=== PATIENT | male | born 1980 | race Caucasian/White ===

== ENCOUNTER 2023-04-25 07:56 | Emergency (ER) | payer MEDICAID ==
[2023-04-25 08:06] VITALS: PULSE 108
[2023-04-25] MEDS ORDERED: Sodium Chloride 0.9% 1000 ML 1,000 ML IV STA (08:32)
[2023-04-25] MEDS ORDERED: Zofran 4 MG/2 ML VIAL IV ONE (08:35)
[2023-04-25] MEDS ORDERED: TORAdol 30 mg Injection IV ONE (08:35)
[2023-04-25] MEDS ORDERED: TORAdol 30 mg Injection ONE (08:46)
[2023-04-25] MEDS ORDERED: Zofran 4 MG/2 ML VIAL ONE (08:46)
[2023-04-25] MEDS ORDERED: Sodium Chloride 0.9% 1000 ML 1,000 ML ONE (08:46)
--- NOTE | 2023-04-25 08:46 | ERPHSYRPT ---
- History of Present Illness Time Seen by Provider: 04/25/23 08:41 Historian: patient Exam Limitations: no limitations Patient Subjective Stated Complaint: pt here for abd pain for 3 days now, states feels like cramping, some nausea Triage Nursing Assessment: pt alert, resp easy, skin w/d/p, abd soft, no edema noted, bm yesterday Physician History: Patient is a 43-year-old male presents to our ED for evaluation of abdominal cramping. Cramping started approximately 3 days ago. No trauma no fever. Patient has not had a bowel movement at this timeframe. Patient is experiencing nausea. Symptoms are intermittent. Symptoms are moderate in intensity. No specific worsening improving factors. Patient denies a history of the same. Patient has no other complaints. Patient denies past medical history. Patient voices no other complaints or concerns at this time. Portions of this note were created with voice recognition technology. There may be grammatical, spelling, punctuation or sound alike errors Timing/Duration: day(s) (3 days) Activities at Onset: none Quality: cramping Abdominal Pain Onset Location: generalized abdomen Pain Radiation: no radiation Severity of Pain-Max: moderate Severity of Pain-Current: mild Modifying Factors: Improves With: nothing Associated Symptoms: denies symptoms Previous symptoms: no prior history Allergies/Adverse Reactions: No Known Drug Allergies Allergy (Unverified 04/25/23 08:04) Home Medications: Buprenorphine HCl/Naloxone HCl [Suboxone 8 mg-2 mg Sl Film] 1 ea DAILY 04/25/23 [History] Hx Influenza Vaccination/Date Given: No Hx Pneumococcal Vaccination/Date Given: No Immunizations Up to Date: Yes Travel Risk - International Travel Have you traveled outside of the country in past 3 weeks: No - Coronavirus Screening Are you exhibiting any of the following symptoms?: No Close contact with a COVID-19 positive Pt in past 14-21 Days: No - Vaccine Status Have you recieved a Covid-19 vaccination: Yes [employer]: Moderna - Vaccination Dates Date of 2cond Vaccination (if applicable): 2020 - Review of Systems Constitutional: No Symptoms, No Fever, No Chills Eyes: No Symptoms Ears, Nose, & Throat: No Symptoms Respiratory: No Symptoms, No Cough, No Dyspnea Cardiac: No Symptoms, No Chest Pain, No Edema, No Syncope Abdominal/Gastrointestinal: No Symptoms, No Abdominal Pain, No Nausea, No Vomiting, No Diarrhea Genitourinary Symptoms: No Symptoms, No Dysuria Musculoskeletal: No Symptoms, No Back Pain, No Neck Pain Skin: No Symptoms, No Rash Neurological: No Symptoms, No Dizziness, No Focal Weakness, No Sensory Changes Psychological: No Symptoms Endocrine: No Symptoms Hematologic/Lymphatic: No Symptoms Immunological/Allergic: No Symptoms All Other Systems: Reviewed and Negative - Past Medical History Pertinent Past Medical History: No Neurological History: No Pertinent History ENT History: No Pertinent History Cardiac History: No Pertinent History Respiratory History: No Pertinent History Endocrine Medical History: No Pertinent History Musculoskeletal History: No Pertinent History GI Medical History: No Pertinent History Psycho-Social History: No Pertinent History Male Reproductive Disorders: No Pertinent History Other Medical History: unknown pt is unable to verbalize - Past Surgical History Past Surgical History: Yes Neuro Surgical History: No Pertinent History Cardiac: No Pertinent History Respiratory: No Pertinent History Gastrointestinal: No Pertinent History Genitourinary: No Pertinent History Musculoskeletal: No Pertinent History Male Surgical History: No Pertinent History Other Surgical History: wound debridment leg - Social History Smoking Status: Current every day smoker Exposure to second hand smoke: Yes Drug Use: marijuana Patient Lives Alone: No - Nursing Vital Signs Nursing Vital Signs: Initial Vital Signs Temperature 97.2 F 04/25/23 08:05 Pulse Rate 108 H 04/25/23 08:05 Respiratory Rate 18 04/25/23 08:05 Blood Pressure 156/110 04/25/23 08:05 O2 Sat by Pulse Oximetry 98 04/25/23 08:05 Pain Scale Pain Intensity 6 - Physical Exam General Appearance: no apparent distress, alert Eye Exam: PERRL/EOMI, eyes nml inspection Ears, Nose, Throat Exam: normal ENT inspection, pharynx normal, moist mucous membranes Neck Exam: normal inspection, non-tender, supple, full range of motion Respiratory Exam: normal breath sounds, lungs clear, airway intact, No respiratory distress Cardiovascular Exam: regular rate/rhythm, normal heart sounds, normal peripheral pulses Gastrointestinal/Abdomen Exam: soft, other (Hypoactive bowel sounds. No tenderness. Slightly distended. No guarding. No pulsatile masses), No tenderness, No mass Back Exam: normal inspection, normal range of motion, No CVA tenderness, No vertebral tenderness Extremity Exam: normal inspection, normal range of motion, pelvis stable Neurologic Exam: alert, oriented x 3, cooperative, normal mood/affect, nml cerebellar function, sensation nml, No motor deficits Skin Exam: normal color, warm, dry Lymphatic Exam: No adenopathy SpO2 Interpretation: normal SpO2: 98 O2 Delivery: Room Air - Course Nursing assessment & vital signs reviewed: Yes - CT Exams Abdomen/Pelvis CT Interpretation: Tele-radiologist Report (Hepatosplenomegaly otherwise negative.) Ordered Tests: Active Orders 24 hr Category Date Time Status IV Insertion STAT Care 04/25/23 08:32 Active ABDOMEN AND PELVIS W/0 CONTRAS [CT] Stat Exams 04/25/23 08:33 Completed CBC W DIFF Stat Lab 04/25/23 08:45 Completed CMP Stat Lab 04/25/23 08:45 Completed LIPASE Stat Lab 04/25/23 08:45 Completed TROPONIN Q4H Lab 04/25/23 08:45 Completed TROPONIN Q4H Lab 04/25/23 12:45 Ordered TROPONIN Q4H Lab 04/25/23 16:45 Ordered Medication Summary Discontinued Medications Generic Name Dose Route Start Last Admin Trade Name Freq PRN Reason Stop Dose Admin Sodium Chloride 1,000 mls @ 999 mls/hr 04/25/23 08:32 04/25/23 08:47 Sodium Chloride 0.9% 1000 Ml IV 04/25/23 09:32 999 mls/hr .Q1H1M STA Administration Sodium Chloride Confirm 04/25/23 08:46 Sodium Chloride 0.9% 1000 Ml Administered 04/25/23 08:47 Dose 1,000 mls @ ud .ROUTE .STK-MED ONE Ketorolac Tromethamine 30 mg 04/25/23 08:35 04/25/23 08:47 Ketorolac Tromethamine 30 Mg/Ml Inj IV 04/25/23 08:36 30 mg STAT ONE Administration Ketorolac Tromethamine Confirm 04/25/23 08:46 Ketorolac Tromethamine 30 Mg/Ml Inj Administered 04/25/23 08:47 Dose 30 mg .ROUTE .STK-MED ONE Ondansetron HCl 4 mg 04/25/23 08:35 04/25/23 08:48 Ondansetron Hcl 4 Mg/2 Ml Vial IV 04/25/23 08:36 4 mg STAT ONE Administration Ondansetron HCl Confirm 04/25/23 08:46 Ondansetron Hcl 4 Mg/2 Ml Vial Administered 04/25/23 08:47 Dose 4 mg .ROUTE .STK-MED ONE Lab/Rad Data: Laboratory Result Diagrams 04/25/23 08:45 04/25/23 08:45 Laboratory Results 04/25/23 04/25/23 04/25/23 Range/Units 08:45 08:45 08:45 WBC 6.8 (4.0-10.5) x10^3/uL RBC 5.29 (4.1-5.6) x10^6/uL Hgb 16.4 (12.5-18.0) g/dL Hct 46.7 (42-50) % MCV 88.3 (78-100) fL MCH 31.0 (26-32) pg MCHC 35.1 (32-36) g/dL RDW 12.3 (11.5-14.0) % Plt Count 181 (150-450) x10^3/uL MPV 10.4 (7.5-11.0) fL Gran % 70.1 H (36.0-66.0) % Immature Gran % (Auto) 0.4 (0.00-0.4) % Nucleat RBC Rel Count 0.0 (0.00-0.1) % Eos # (Auto) 0.05 (0-0.5) x10^3/uL Immature Gran # (Auto) 0.03 (0.00-0.03) x10^3u/L Absolute Lymphs (auto) 1.36 (1.0-4.6) x10^3/uL Absolute Monos (auto) 0.59 (0.0-1.3) x10^3/uL Absolute Nucleated RBC 0.00 (0.00-0.01) x10^3u/L Lymphocytes % 19.9 L (24.0-44.0) % Monocytes % 8.6 (0.0-12.0) % Eosinophils % 0.7 (0.00-5.0) % Basophils % 0.3 (0.0-0.4) % Absolute Granulocytes 4.79 (1.4-6.9) x10^3/uL Basophils # 0.02 (0-0.4) x10^3/uL Sodium 138 (137-145) mmol/L Potassium 3.8 (3.5-5.1) mmol/L Chloride 101 (98-107) mmol/L Carbon Dioxide 27 (22-30) mmol/L Anion Gap 13.1 (5-15) MEQ/L BUN 9 (9-20) mg/dL Creatinine 0.84 (0.66-1.25) mg/dL Estimated GFR > 60.0 ML/MIN Glucose 113 H (74-106) mg/dL Calcium 9.2 (8.4-10.2) mg/dL Total Bilirubin 1.20 (0.2-1.3) mg/dL AST 38 (17-59) U/L ALT 48 (0-50) U/L Alkaline Phosphatase 92 (38-126) U/L Troponin I < 0.012 (0.000-0.034) ng/mL Serum Total Protein 7.8 (6.3-8.2) g/dL Albumin 4.5 (3.5-5.0) g/dL Lipase 91 (23-300) U/L - Progress Progress: improved Progress Note: Please a 43-year-old male presents to our ED for evaluation of abdominal cramping x3 days. Patient also experiencing some nausea. Physical exam reveals abdomen to be slightly distended. No tenderness. Overlying soft tissue intact. No signs of trauma. Patient in no distress. Laboratory work-up includes CT abdomen pelvis which is negative for acute intra-abdominal pathology. Incidental hepatosplenomegaly observed. CBC nonremarkable. CMP non remarkable. Lipase negative. Troponin negative. Patient received a liter of normal saline. Patient received Toradol for pain and Zofran for nausea. Patient reassessed. Pain significantly improved. No indication for further work-up. Will discharge home. Patient requesting a work note. Work note was provided. A prescription for Bentyl and Zofran was provided. Patient agrees to follow-up with primary care doctor within 48 hours for reevaluation. Portions of this note were created with voice recognition technology. There may be grammatical, spelling, punctuation or sound alike errors Complexity of problem addressed is moderate acute complicated No critical care time. Complex of data reviewed and analyzed is moderate. Test ordered. Test reviewed. Clinical correlation completed between findings on CT scan laboratory work-up and physical examination. Risk of complication and or risk morbidity/mortality of patient management is moderate. Patient received a liter normal saline, Toradol IV as well as Zofran IV. A prescription for Zofran and Bentyl was forwarded to patient's pharmacy. We will discharge home. Vital stable. Time spent to discharge patient is appro ximately 15 minutes. Plan of care established for shared decision making. Patient voices no other complaints or concerns at this time. He states he will follow-up with his primary care doctor within 48 hours for evaluation. Work note provided per his request. Portions of this note were created with voice recognition technology. There may be grammatical, spelling, punctuation or sound alike errors 04/25/23 10:23 Counseled pt/family regarding: lab results, diagnosis, need for follow-up, rad results - Departure Departure Disposition: Home Clinical Impression: Abdominal pain, Hepatosplenomegaly Condition: Stable Critical Care Time: No Referrals: ALANA MCCANN [Primary Care Provider] - Follow up/PCP as directed Additional Instructions: Discharge/Care Plan VICKI DEVRIES was seen on 04/25/23 in the Emergency Room. The patient was counseled regarding Diagnosis,Lab results, Imaging studies, need for follow up and when to return to the Emergency Room. Prescriptions given: Discharge Note I have spoken with the patient and/or caregivers. I have explained the patient's condition, diagnosis and treatment plan based on the information available to me at this time. I have answered the patient's and/or caregiver's questions and addressed any concerns. The patient and/or caregivers have as good understanding of the patient's diagnosis, condition and treatment plan as can be expected at this point. The vital signs have been stable. The patient's condition is stable and appropriate for discharge from the emergency department. The patient will pursue further outpatient evaluation with the primary care physician or other designated or consulting physician as outlined in the discharge instructions. The patient and/or caregivers are agreeable to this plan of care and follow-up instructions have been explained in detail. The patient and/or caregivers have received these instruction. The patient/and or caregivers are aware that any significant change in condition or worsening of symptoms should prompt an immediate return to this or the closest emergency department or call 911. Forms: Work/School Release Form Prescriptions: Ondansetron ODT 4 MG [Zofran Odt 4 mg] 4 mg PO Q6H PRN PRN #10 tablet PRN Reason: Vomiting Dicyclomine HCl 20 mg [Bentyl 20 mg] 20 mg PO TID 5 Days #15 tablet
[2023-04-25 08:49] LABS: Absolute Neutrophil Ct (ANC) 4.79 x10^3/uL (1.4-6.9); BASOPHIL % 0.3 % (0.0-0.4); Basophil (Absolute #) 0.02 x10^3/uL (0-0.4); Eosinophil % 0.7 % (0.00-5.0); Eosinophil (Absolute #) 0.05 x10^3/uL (0-0.5); Hematocrit 46.7 % (42-50); Hemoglobin 16.4 g/dL (12.5-18.0); IMMATURE GRAN # 0.03 x10^3u/L (0.00-0.03); IMMATURE GRAN % 0.4 % (0.00-0.4); Lymphocyte (Absolute #) 1.36 x10^3/uL (1.0-4.6); Lymphocytes % 19.9 % (24.0-44.0); Mean Cell Volume 88.3 fL (78-100); Mean Corpuscular Hgb Concent. 35.1 g/dL (32-36); Mean Platelet Volume 10.4 fL (7.5-11.0); Monocyte (Absolute #) 0.59 x10^3/uL (0.0-1.3); Monocytes % 8.6 % (0.0-12.0); Neutrophil % 70.1 % (36.0-66.0); Platelet Count 181 x10^3/uL (150-450); Red Blood Count 5.29 x10^6/uL (4.1-5.6); Red Cell Distribution Width 12.3 % (11.5-14.0); White Blood Count 6.8 x10^3/uL (4.0-10.5)
[2023-04-25 09:07] LABS: ALBUMIN 4.5 g/dL (3.5-5.0); ALKALINE PHOSPHATASE 92 U/L (38-126); ANION GAP 13.1 MEQ/L (5-15); BLOOD UREA NITROGEN 9 mg/dL (9-20); CHLORIDE 101 mmol/L (98-107); Calcium 9.2 mg/dL (8.4-10.2); Carbon Dioxide 27 mmol/L (22-30); Creatinine 1 0.84 mg/dL (0.66-1.25); EST GLOMERULAR FILTRATION RATE > 60.0 ML/MIN; Glucose 113 mg/dL (74-106); LIPASE 91 U/L (23-300); Potassium 3.8 mmol/L (3.5-5.1); SGOT/AST 38 U/L (17-59); SGPT/ALT 48 U/L (0-50); SODIUM 138 mmol/L (137-145); Total Protein 7.8 g/dL (6.3-8.2)
--- NOTE | 2023-04-25 09:37 | XRAY ---
CLINICAL HISTORY:Mid abdominal cramping since 3 days with blood in stool. COMPARISON:None. TECHNIQUES:CT scan of the abdomen was performed without IV contrast. Bowel loops are not opacified by prior administration of oral contrast. FINDINGS: The liver is mildly enlarged in size and measures 17 cm. No focal parenchymal abnormality. The portal vein, intrahepatic biliary radicals and the bile ducts are normal. The spleen is also mildly enlarged in size, measuring 14 cm. Few calcificed granulomas are seen in spleen. Two small nodules are seen posterior to the spleen with similar density to spleen, suggestive of splenules. Pancreas normal in size. Adrenal glands are unremarkable. The kidneys are normal in size and shape. No calculi or hydronephrosis seen on either side. GB is unremarkable. Appendix is visualized and appears normal. The visualized small and large bowel loops are unremarkable. There is no evidence of significant enlargement of the mesenteric or retroperitoneal lymph nodes. Urinary bladder is partially distended. no hyperdense calculus is noted. Prostate is normal. Bones show no abnormality. No lytic or sclerotic bone lesions. IMPRESSION: 1. Mild hepatosplenomegaly. 2. No other gross abnormality. Bowel appears unremarkable with limitations of non-contrast examination. Electronically Signed by: Allan Talavera MD. (04/25/2023 08:32:24 DEPOSITION OPERATOR)
[2023-04-25 10:40] VITALS: BP 145/89; O2SAT 97
== END 2023-04-25 10:49 | disposition home or self-care (01) ==
LOC: ED 07:56
DX: R16.2 Hepatomegaly with splenomegaly, not elsewhere classified (principal); R10.9 Unspecified abdominal pain; R11.0 Nausea; Z79.891 Long term (current) use of opiate analgesic; Z72.0 Tobacco use
CPT/HCPCS: 36000; 36415; 74176; 80053; 83690; 84484; 85025; 96360; 96374; 96375; 99284; J1885; J2405

== ENCOUNTER 2024-01-10 20:55 | Emergency (ER) | payer MEDICAID, OTHER ==
[2024-01-10 21:13] VITALS: O2SAT 98
--- NOTE | 2024-01-10 21:13 | ERPHSYRPT ---
- History of Present Illness Time Seen by Provider: 01/10/24 21:05 Source: patient Physician History: 43-year-old male presents to our ED for evaluation of bleeding to the left index finger. Patient states he was making dinner. He was cutting potatoes with a knife and inadvertently lacerated his left index finger at its lateral aspect. Injury occurred approximately an hour and a half prior to arrival. Patient wrapped the injury and states that he cannot get it to stop bleeding. No other injuries reported. Pain is minimal. Patient voices no other complaints or concerns at this time. Portions of this note were created with voice recognition technology. There may be grammatical, spelling, punctuation or sound alike errors Timing/Duration: today Severity: mild Modifying Factors: Improves With: nothing Associated Symptoms: denies symptoms Allergies/Adverse Reactions: No Known Drug Allergies Allergy (Verified 01/10/24 20:59) Home Medications: Buprenorphine HCl/Naloxone HCl [Suboxone 8 mg-2 mg Sl Film] 1 ea DAILY 04/25/23 [History] Hx Influenza Vaccination/Date Given: No Hx Pneumococcal Vaccination/Date Given: No - Review of Systems Constitutional: No Symptoms Eyes: No Symptoms Ears, Nose, & Throat: No Symptoms Respiratory: No Symptoms Cardiac: No Symptoms Abdominal/Gastrointestinal: No Symptoms Genitourinary Symptoms: No Symptoms Musculoskeletal: No Symptoms Skin: No Symptoms Neurological: No Symptoms Psychological: No Symptoms Endocrine: No Symptoms Hematologic/Lymphatic: No Symptoms Immunological/Allergic: No Symptoms - Past Medical History Pertinent Past Medical History: No Neurological History: No Pertinent History ENT History: No Pertinent History Cardiac History: No Pertinent History Respiratory History: No Pertinent History Endocrine Medical History: No Pertinent History Musculoskeletal History: No Pertinent History GI Medical History: No Pertinent History Psycho-Social History: No Pertinent History Male Reproductive Disorders: No Pertinent History Other Medical History: unknown pt is unable to verbalize - Past Surgical History Past Surgical History: Yes Neuro Surgical History: No Pertinent History Cardiac: No Pertinent History Respiratory: No Pertinent History Gastrointestinal: No Pertinent History Genitourinary: No Pertinent History Musculoskeletal: No Pertinent History Male Surgical History: No Pertinent History Other Surgical History: wound debridment leg - Social History Smoking Status: Current every day smoker Exposure to second hand smoke: Yes Drug Use: marijuana Patient Lives Alone: No - Physical Exam General Appearance: no apparent distress, alert Eye Exam: PERRL/EOMI, eyes nml inspection Ears, Nose, Throat Exam: normal ENT inspection, moist mucous membranes Neck Exam: normal inspection, non-tender, supple, full range of motion Respiratory Exam: normal breath sounds, lungs clear, No respiratory distress Cardiovascular Exam: regular rate/rhythm, normal heart sounds, normal peripheral pulses Gastrointestinal/Abdomen Exam: soft, normal bowel sounds, No tenderness, No mass Back Exam: normal inspection, normal range of motion, No CVA tenderness, No vertebral tenderness Extremity Exam: normal inspection, normal range of motion, pelvis stable Neurologic Exam: alert, oriented x 3, cooperative, normal mood/affect, sensation nml, No motor deficits Skin Exam: normal color, warm, dry, No rash Lymphatic Exam: No adenopathy SpO2 Interpretation: normal SpO2: 98 O2 Delivery: Room Air - Course Nursing assessment & vital signs reviewed: Yes - Progress Progress: improved Progress Note: 43-year-old male presents to our ED with a superficial finger avulsion to his left index finger distal tip lateral aspect. No indication for suture repair. Patient just requires a sterile dressing for 48 hours and follow-up. No antibiotics needed. No other injuries reported. Patient voices no other complaints or concerns at this time. Portions of this note were created with voice recognition technology. There may be grammatical, spelling, punctuation or sound alike errors Complexity problem addressed is low acute uncomplicated No critical care time Complexity of data reviewed and analyzed is none. No specialized testing ordered. Diagnosis made based on history and physical exam. Risk of complication and or risk of morbidity/mortality patient management is low Vital stable. Time spent to discharge patient is approximately 10 minutes. Plan of care established for shared decision making. No social determinants of health present impede follow-up. Portions of this note were created with voice recognition technology. There may be grammatical, spelling, punctuation or sound alike errors 01/10/24 21:08 Counseled pt/family regarding: diagnosis, need for follow-up - Departure Departure Disposition: Home Clinical Impression: Avulsion of finger tip Condition: Stable Critical Care Time: No Referrals: IDALIA RENE DO [Primary Care Provider] - Follow up/PCP as directed Additional Instructions: Discharge/Care Plan VICKI DEVRIES was seen on 01/10/24 in the Emergency Room. The patient was counseled regarding Diagnosis,Lab results, Imaging studies, need for follow up and when to return to the Emergency Room. Prescriptions given: Discharge Note I have spoken with the patient and/or caregivers. I have explained the patient's condition, diagnosis and treatment plan based on the information available to me at this time. I have answered the patient's and/or caregiver's questions and addressed any concerns. The patient and/or caregivers have as good understanding of the patient's diagnosis, condition and treatment plan as can be expected at this point. The vital signs have been stable. The patient's condition is stable and appropriate for discharge from the emergency department. The patient will pursue further outpatient evaluation with the primary care physician or other designated or consulting physician as outlined in the discharge instructions. The patient and/or caregivers are agreeable to this plan of care and follow-up instructions have been explained in detail. The patient and/or caregivers have received these instruction. The patient/and or caregivers are aware that any significant change in condition or worsening of symptoms should prompt an immediate return to this or the closest emergency department or call 911.
[2024-01-10 21:31] VITALS: PULSE 93; RESP 18
[2024-01-10 21:37] VITALS: BP 152/109; TEMP 98.3
== END 2024-01-10 21:40 | disposition home or self-care (01) ==
LOC: ED 20:55
DX: S61.211A Laceration without foreign body of left index finger without damage to nail, initial encounter (principal); W26.0XXA Contact with knife, initial encounter; Y93.G1 Activity, food preparation and clean up; Z79.891 Long term (current) use of opiate analgesic; Z72.0 Tobacco use
CPT/HCPCS: 99282

== ENCOUNTER 2025-08-05 07:48 | Emergency (ER) | payer MEDICAID ==
[2025-08-05 07:59] VITALS: TEMP 98.5
[2025-08-05] MEDS ORDERED: TORAdol 30 mg Injection ONE (08:30)
[2025-08-05] MEDS ORDERED: DECADRON 10MG INJ. ONE (08:30)
[2025-08-05] MEDS ORDERED: CLINDAMYCIN-D5W 900 MG/50 ML*** 900 MG/50 ML BAG IV ONE (08:31)
--- NOTE | 2025-08-05 08:32 | ERPHSYRPT ---
- History of Present Illness Time Seen by Provider: 08/05/25 08:20 Source: patient Exam Limitations: no limitations Patient Subjective Stated Complaint: c/o toothache on the left side Triage Nursing Assessment: patient brought self to ED with c/o left sided toothache that he states is a 7/10 at this time. pain started Monday, patient stated he saw the dentist yesterday and it would be too expensive to remove the tooth. left cheek appears to be slightly swollen, hypertensive, gait steady, skin w/n/d, patient is unable to open mouth fully for assessment of tooth at this time. Physician History: Patient is a 45-year-old male current smoker otherwise healthy presents to our ED for evaluation of pain and swelling to his left lower jaw. Patient states symptoms started Monday morning with a painful tooth. Patient followed up with a dentist yesterday. Patient reports that he cannot afford the cost at that time to extract the tooth so he declined the procedure. Patient is now presenting with worsening pain and swelling inability to open his mouth and difficulty swallowing. No trauma no fever no headache. Patient tolerating oral secretions well at this time. No associated chest pain or shortness of breath. Patient voices no other complaints or concerns at this time. Portions of this note were created with voice recognition technology. There may be grammatical, spelling, punctuation or sound alike errors Timing/Duration: yesterday Severity: moderate Modifying Factors: Improves With: nothing Associated Symptoms: denies symptoms Allergies/Adverse Reactions: No Known Drug Allergies Allergy (Verified 08/05/25 07:52) Hx Tetanus, Diphtheria Vaccination/Date Given: Yes Hx Influenza Vaccination/Date Given: No Hx Pneumococcal Vaccination/Date Given: No Travel Risk - International Travel Have you traveled outside of the country in past 3 weeks: No - Emerging Infectious Disease Are you exhibiting symptoms associated with any current EIDs: No - Review of Systems All Other Systems: Reviewed and Negative - Past Medical History Pertinent Past Medical History: No Neurological History: No Pertinent History ENT History: No Pertinent History Cardiac History: No Pertinent History Respiratory History: No Pertinent History Endocrine Medical History: No Pertinent History Musculoskeletal History: No Pertinent History GI Medical History: No Pertinent History History: No Pertinent History Psycho-Social History: No Pertinent History Male Reproductive Disorders: No Pertinent History - Past Surgical History Past Surgical History: Yes Neuro Surgical History: No Pertinent History Cardiac: No Pertinent History Respiratory: No Pertinent History Gastrointestinal: No Pertinent History Genitourinary: No Pertinent History Musculoskeletal: No Pertinent History Male Surgical History: No Pertinent History Other Surgical History: wound debridment leg - Social History Smoking Status: Current some day smoker Exposure to second hand smoke: Yes Drug Use: marijuana - Social Determinants of Health Will the patient participate in the screening: Declined to provide - Nursing Vital Signs Nursing Vital Signs: Initial Vital Signs Temperature 98.5 F 08/05/25 07:52 Pulse Rate 108 H 08/05/25 07:52 Respiratory Rate 18 08/05/25 07:52 Blood Pressure 167/103 08/05/25 07:52 O2 Sat by Pulse Oximetry 95 08/05/25 07:52 Pain Scale Pain Intensity 3 - Physical Exam General Appearance: no apparent distress, alert Eye Exam: PERRL/EOMI, eyes nml inspection Ears, Nose, Throat Exam: normal ENT inspection, moist mucous membranes, other (Unable to thoroughly evaluate the throat secondary to inability to open mouth.) Neck Exam: normal inspection, non-tender, supple, full range of motion Respiratory Exam: normal breath sounds, lungs clear, airway intact, No respiratory distress Cardiovascular Exam: regular rate/rhythm, normal heart sounds, normal peripheral pulses Gastrointestinal/Abdomen Exam: soft, normal bowel sounds, No tenderness, No mass Back Exam: normal inspection, normal range of motion, No CVA tenderness, No vertebral tenderness Extremity Exam: normal inspection, normal range of motion, pelvis stable Neurologic Exam: alert, oriented x 3, cooperative, normal mood/affect, sensation nml, No motor deficits Skin Exam: normal color, warm, dry, No rash Lymphatic Exam: other (Left anterior cervical lymphadenopathy. ) SpO2 Interpretation: normal SpO2: 95 O2 Delivery: Room Air - Course Nursing assessment & vital signs reviewed: Yes - CT Exams Soft Tissue Neck CT Interpretation: Tele-radiologist Report (Prominent left palate teen tonsil, left submandibular gland prominent with stranding and reactive lymphadenopathy. Left cervical lymphadenopathy no abscess. Incidental C5-C6 degenerative disc disease. Dental caries) Ordered Tests: Active Orders 24 hr Category Date Time Status IV Insertion STAT Care 08/05/25 08:22 Active NECK WITH CONTRAST [CT] Stat Exams 08/05/25 08:26 Completed CBC W DIFF Stat Lab 08/05/25 08:30 Completed CMP Stat Lab 08/05/25 08:30 Completed Medication Summary Discontinued Medications Generic Name Dose Route Start Last Admin Trade Name Doreen PRN Reason Stop Dose Admin Dexamethasone Sodium Phosphate 10 mg 08/05/25 08:24 08/05/25 08:36 Dexamethasone Sod Phosphate 10 Mg/Ml IV 08/05/25 08:25 10 mg STAT ONE Administration Dexamethasone Sodium Phosphate Confirm 08/05/25 08:30 Dexamethasone Sod Phosphate 10 Mg/Ml Administered 08/05/25 08:31 Dose 10 mg .ROUTE .STK-MED ONE Sodium Chloride 1,000 mls @ 999 mls/hr 08/05/25 08:22 08/05/25 09:32 Sodium Chloride 0.9% 1000 Ml IV 08/05/25 09:22 Infused .Q1H1M STA Infusion Clindamycin HCl/Dextrose 900 mg in 50 mls @ 100 mls/hr 08/05/25 08:25 08/05/25 09:03 Clindamycin-D5w 900 Mg/50 Ml IV 08/05/25 08:54 Infused STAT STA Infusion Sodium Chloride Confirm 08/05/25 08:31 Sodium Chloride 0.9% 1000 Ml Administered 08/05/25 08:32 Dose 1,000 mls @ ud .ROUTE .STK-MED ONE Clindamycin HCl/Dextrose Confirm 08/05/25 08:31 Clindamycin-D5w 900 Mg/50 Ml Administered 08/05/25 08:32 Dose 900 mg in 50 mls @ ud IV .STK-MED ONE Ketorolac Tromethamine 30 mg 08/05/25 08:22 08/05/25 08:35 Ketorolac Tromethamine 30 Mg/Ml Inj IV 08/05/25 08:23 30 mg STAT ONE Administration Ketorolac Tromethamine Confirm 08/05/25 08:30 Ketorolac Tromethamine 30 Mg/Ml Inj Administered 08/05/25 08:31 Dose 30 mg .ROUTE .STK-MED ONE Impression: 1. Prominent edematous appearing left submandibular gland favoring adenitis. Also prominent enhancing reactive left submandibular/left cervical lymph nodes and prominent left palatine tonsil. 2. Incidental left lower molar dental meghana and mild C5-C6 degenerative disc disease Lab/Rad Data: Laboratory Result Diagrams 08/05/25 08:30 08/05/25 08:30 Laboratory Results 08/05/25 08/05/25 Range/Units 08:30 08:30 WBC 10.8 H (4.23-9.07) x10^3/uL RBC 5.07 (4.63-6.08) x10^6/uL Hgb 15.4 (13.7-17.5) g/dL Hct 44.6 (40.1-51.0) % MCV 88.0 (79.0-92.2) fL MCH 30.4 (25.7-32.2) pg MCHC 34.5 (32.3-36.5) g/dL RDW 14.2 (11.6-14.4) % Plt Count 124 L (163-337) x10^3/uL MPV 11.5 (9.4-12.4) fL Gran % 77.7 H (34.0-67.9) % Immature Gran % (Auto) 0.6 H (0.001-0.429) % Nucleat RBC Rel Count 0.0 (0.00-0.2) % Eos # (Auto) 0.03 L (0.04-0.54) x10^3/uL Immature Gran # (Auto) 0.06 H (0.001-0.031) x10^3u/L Absolute Lymphs (auto) 1.09 L (1.32-3.57) x10^3/uL Absolute Monos (auto) 1.20 H (0.30-0.82) x10^3/uL Absolute Nucleated RBC 0.00 (0.00-0.012) x10^3u/L Lymphocytes % 10.1 L (21.8-53.1) % Monocytes % 11.2 (5.3-12.2) % Eosinophils % 0.3 L (0.8-7.0) % Basophils % 0.1 L (0.2-1.2) % Absolute Granulocytes 8.36 H (1.78-5.38) x10^3/uL Basophils # 0.01 (0.01-0.08) x10^3/uL Sodium 136 (135-145) mmol/L Potassium 4.1 (3.5-5.1) mmol/L Chloride 104 (98-107) mmol/L Carbon Dioxide 24 (22-30) mmol/L Anion Gap 12.3 (5-15) MEQ/L BUN 10 (9-20) mg/dL Creatinine 0.70 (0.66-1.25) mg/dL Estimated GFR 117.3 ML/MIN Glucose 134 H (74-106) mg/dL Calcium 8.9 (8.4-10.2) mg/dL Total Bilirubin 1.10 (0.2-1.3) mg/dL AST 32 (17-59) U/L ALT 33 (0-50) U/L Alkaline Phosphatase 107 (38-126) U/L Serum Total Protein 8.0 (6.3-8.2) g/dL Albumin 4.5 (3.5-5.0) g/dL - Progress Progress: improved Progress Note: Patient is a 45-year-old male current smoker otherwise healthy presents to our ED for evaluation of pain and swelling to his left lower jaw. Patient states symptoms started Monday morning with a painful tooth. Patient followed up with a dentist yesterday. Physical exam reveals carious dentition. Patient also has left anterior cervical lymphadenopathy. Trismus observed. Patient tolerating oral secretions. CT scan reveals left submandibular gland stranding with reactive lymphadenopathy. Laboratory workup reveals mild leukocytosis of 10.8. Patient reassessed. Pain significantly improved. Patient now tolerating p.o. He is able to swallow without difficulty. Patient received 900 mg clindamycin IV along with 125 mg Decadron, 30 mg Toradol IV. Patient reassessed. Patient continues to improve throughout his stay in our ED. Patient will be discharged home. We contacted patient's primary care provider Dr. Rene who will see patient on Monday at 10 AM for follow-up visit. Prescription for Toradol and clindamycin forwarded to patient's pharmacy. Plan of care discussed with patient. He agrees to admission at [facility] for further evaluation and treatment. Portions of this note were created with voice recognition technology. There may be grammatical, spelling, punctuation or sound alike errors History obtained from patient. Differential diagnosis include peritonsillar abscess, pharyngitis, dental abscess I considered discharging patient with [place]. However I observed that patient is currently on buprenorphine. Because of this I decided to hold on a [place] prescription. Complexity of problem addressed is moderate acute complicated. No critical care time. Complexity of data reviewed and analyzed is moderate. Test ordered chest reviewed results analyzed and correlated clinically with history and physical exam. We contacted patient's primary care provider and arranged early follow-up. Patient will see primary care provider on Monday at 10 AM. Risk of complication and or risk of morbidity/mortality of patient management is moderate. Patient received a prescription for clindamycin and Toradol. Vital stable. Time spent to discharge patient is approximately 15 minutes. Plan of care established for shared decision making. No social determinants of health present to impede follow-up. Portions of this note were created with voice recognition technology. There may be grammatical, spelling, punctuation or sound alike errors 08/05/25 11:44 Counseled pt/family regarding: lab results, diagnosis, need for follow-up, rad results - Departure Departure Disposition: Home Clinical Impression: Trismus, Carious teeth, Leukocytosis, Swelling of submandibular gland, Adenitis Condition: Stable Critical Care Time: No Referrals: IDALIA RENE DO [Primary Care Provider, [facility]] - Follow up/PCP as directed Additional Instructions: Please follow-up with Dr. Rene on Monday at 10 AM. Discharge/Care Plan VICKI DEVRIES was seen on 08/05/25 in the Emergency Room. The patient was counseled regarding Diagnosis,Lab results, Imaging studies, need for follow up and when to return to the Emergency Room. Prescriptions given: Discharge Note I have spoken with the patient and/or caregivers. I have explained the patient's condition, diagnosis and treatment plan based on the information available to me at this time. I have answered the patient's and/or caregiver's questions and addressed any concerns. The patient and/or caregivers have as good understanding of the patient's diagnosis, condition and treatment plan as can be expected at this point. The vital signs have been stable. The patient's condition is stable and appropriate for discharge from the emergency department. The patient will pursue further outpatient evaluation with the primary care physician or other designated or consulting physician as outlined in the discharge instructions. The patient and/or caregivers are agreeable to this plan of care and follow-up instructions have been explained in detail. The patient and/or caregivers have received these instruction. The patient/and or caregivers are aware that any significant change in condition or worsening of symptoms should prompt an immediate return to this or the closest emergency department or call 911. Prescriptions: Hydrocodone/APAP 325 [[place] 5/325 mg] 1 each PO Q6H PRN PRN #10 tablet MDD 4 PRN Reason: Pain Clindamycin HCl 150 mg [Cleocin 150 mg Capsule] 2 cap PO QID 7 Days #56 cap Ketorolac Trometh 10 mg Tab [TORAdol 10 MG TABLET] 10 mg PO TID 5 Days #15 tablet
[2025-08-05] MEDS: CLINDAMYCIN-D5W 900 MG/50 ML*** 900 MG/50 ML BAG IV STA (08:33)
[2025-08-05] MEDS: TORAdol 30 mg Injection IV ONE (08:35)
[2025-08-05] MEDS: DECADRON 10MG INJ. IV ONE (08:36)
[2025-08-05 08:39] LABS: BASOPHIL % 0.1 % (0.2-1.2); Basophil (Absolute #) 0.01 x10^3/uL (0.01-0.08); Eosinophil (Absolute #) 0.03 x10^3/uL (0.04-0.54); Hematocrit 44.6 % (40.1-51.0); Hemoglobin 15.4 g/dL (13.7-17.5); IMMATURE GRAN # 0.06 x10^3u/L (0.001-0.031); IMMATURE GRAN % 0.6 % (0.001-0.429); Lymphocyte (Absolute #) 1.09 x10^3/uL (1.32-3.57); Mean Corpuscular Hemoglobin 30.4 pg (25.7-32.2); Mean Corpuscular Hgb Concent. 34.5 g/dL (32.3-36.5); Monocyte (Absolute #) 1.20 x10^3/uL (0.30-0.82); NUCLEATED RBC # 0.00 x10^3u/L (0.00-0.012); NUCLEATED RBC % 0.0 % (0.00-0.2); Platelet Count 124 x10^3/uL (163-337); Red Blood Count 5.07 x10^6/uL (4.63-6.08); White Blood Count 10.8 x10^3/uL (4.23-9.07)
[2025-08-05 08:50] LABS: Calcium 8.9 mg/dL (8.4-10.2); Carbon Dioxide 24.0 mmol/L (22-30); Creatinine 1 0.7 mg/dL (0.66-1.25); EST GLOMERULAR FILTRATION RATE 117.3 ML/MIN; Glucose 134.0 mg/dL (74-106); Potassium 4.1 mmol/L (3.5-5.1); SGOT/AST 32.0 U/L (17-59); SGPT/ALT 33.0 U/L (0-50); Total Protein 8.0 g/dL (6.3-8.2)
--- NOTE | 2025-08-05 10:54 | XRAY ---
Indication: Tooth pain. Abscess. Multiple contiguous axial images obtained through the neck using 80 cc Isovue 370 contrast. Comparison: None Left submandibular gland is slightly prominent with stranding favoring adenitis. Also adjacent prominent enhancing left submandibular lymph nodes likely reactive, largest 1.6 x 0.8 cm. Additional prominent enhancing level 1 left cervical node measuring 1.6 x 1.0 cm also likely reactive. Prominent left palatine tonsil slightly narrows oropharynx. No walled-off fluid collection/abscess. Parotid glands are bilaterally symmetric. Normal epiglottis. Thyroid gland enhances homogeneously. Major arteries/veins are normal in course and caliber. Osseous structures intact with mild C5-C6 degenerative disc disease. A few bilateral dental amalgams produces beam artifact. Left lower molar tooth demonstrates dental meghana. No acute fracture or suspicious bony lesions. Base of brain and lung apices are unremarkable. Impression: 1. Prominent edematous appearing left submandibular gland favoring adenitis. Also prominent enhancing reactive left submandibular/left cervical lymph nodes and prominent left palatine tonsil. 2. Incidental left lower molar dental meghana and mild C5-C6 degenerative disc disease.
[2025-08-05 11:05] VITALS: PULSE 79
[2025-08-05 11:23] VITALS: O2SAT 95
[2025-08-05 11:52] VITALS: BP 131/86; RESP 17
== END 2025-08-05 11:58 | disposition home or self-care (01) ==
LOC: ED 07:48
DX: K02.9 Dental caries, unspecified (principal); R25.2 Cramp and spasm; D72.829 Elevated white blood cell count, unspecified; R59.0 Localized enlarged lymph nodes; R68.84 Jaw pain; Z79.891 Long term (current) use of opiate analgesic; Z79.899 Other long term (current) drug therapy; Z72.0 Tobacco use